=== PATIENT | male | born 1965 | race Caucasian/White ===

== ENCOUNTER 2017-04-07 09:51 | Day surgery (SDC) | payer BC ==
[2017-04-07] MEDS ORDERED: LIDOCAINE 2% MDV (20MG/ML) 20ML VIAL IV ONE (15:51)
[2017-04-07] MEDS ORDERED: MIDAZOLAM HCL 2MG/2ML VIAL IV ONE (15:51)
[2017-04-07] MEDS ORDERED: PROPOFOL 10 MG/ML VIAL IV ONE (15:51)
--- NOTE | 2017-04-10 12:30 | Operative Note ---
DATE OF SURGERY: 04/07/2017 SURGEON: Marlena Proctor MD OPERATION: COLONOSCOPY. INDICATIONS: This is a 51-year-old male with average risk for colorectal cancer who presented for screening colonoscopy. POSTOPERATIVE DIAGNOSES: 1. Left-sided colonic diverticulosis. 2. A 3 mm descending colon polyp that was removed by cold biopsy forceps. 3. Two 8-12 mm sessile polyps in the sigmoid colon that were removed by hot snare. 4. Multiple rectal polyps that were removed by cold snare and biopsy forceps. ANESTHESIA: Sedation is per Anesthesia. Pulse oximetry was monitored throughout the procedure to maintain O2 saturation of 90% or greater. Supplemental oxygen was administered via nasal cannula. Cardiac and vital signs were monitored throughout the duration of the procedure, and they were stable. The procedure of colonoscopy and risks and alternatives of the procedure, including the risk of bleeding and perforation, among others, were explained to the patient who voiced understanding and agreed to have the procedure done. Physical examination was performed, and the patient was found stable for sedation. PROCEDURE: The patient was placed in the left lateral position. Sedation was initiated. A digital rectal exam was performed and showed some mild external hemorrhoids with no palpable rectal masses. An Olympus PCF-AL180 colonoscope was then inserted into the rectum under direct visualization. It was advanced to the cecum without difficulty. The ileocecal valve and appendiceal orifice were identified and photographed. The colonic mucosa was carefully examined upon introduction of the colonoscope. In the sigmoid and descending colon were scattered diverticula. In the descending colon was a 3 mm sessile polyp that was noted and was removed by cold biopsy forceps. There were no other lesions noted. The colonoscope was then withdrawn while carefully examining the colonic mucosal surfaces. No other lesions were noted. In the sigmoid colon were two 8-12 mm sessile polyps that were noted and they were removed by snare cautery. The colonoscope was then withdrawn into the rectum, and there were four 2-3 mm sessile polyps that were noted and they were removed by cold biopsy forceps. There were 2 adjacent 6 mm sessile polyps that were removed by cold snare. Retroflexion revealed grade 1 internal hemorrhoids. There were no other lesions noted. The colonoscope was then withdrawn and the procedure was terminated. The patient tolerated the procedure well without any immediate complications. He remained with stable vital signs and was transferred to the recovery room. RECOMMENDATIONS: 1. The patient should be on a low-residue diet for 2 weeks and thereafter to be on a high-fiber diet. 2. Avoid any aspirin or aspirin-like medications for 2 weeks. 3. The patient is to have a repeat colonoscopy for surveillance in 3 years. Thank you for allowing me to participate in the care of your patient. CC: CONNIE WISE MD, FACP [facility]
== END 2017-04-07 12:08 | disposition home or self-care (01) ==
LOC: HOP 09:51
PROVIDERS: ATTEND Internal Medicine Gastroenterology
DX: Z12.11 Encounter for screening for malignant neoplasm of colon (principal); K57.30 Diverticulosis of large intestine without perforation or abscess without bleeding; D12.4 Benign neoplasm of descending colon; D12.5 Benign neoplasm of sigmoid colon; D12.8 Benign neoplasm of rectum; K64.0 First degree hemorrhoids; K64.4 Residual hemorrhoidal skin tags

== ENCOUNTER 2018-10-02 18:58 | Emergency (ER) | payer BC, OTHER ==
--- NOTE | 2018-10-02 19:05 | Emergency Department Record ---
History of Present Illness - General Chief complaint: Extremity Problem Stated complaint: RT BICEP PAIN Time Seen by Provider: 10/02/18 18:59 Source: Patient, Old records reviewed Mode of Arrival: Ambulatory Limitations: No limitations - History of Present Illness Initial comments: 53 yo male presents to ED for evaluation of pain and "bulging" of the right biceps tendon, reports that his symptoms began approximately 8 days ago. 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 Patient reports previous biceps tendon rupture s/p repair with Dr. Velazquez, denies significant pain or weakness symptoms. MD Complaint: Extremity swelling Onset/Timin -: Days(s) Location: Right, Arm History of Same: Yes -: Yes Myalgia Quality: Aching Consistency: Intermittent Improves with: Rest Worsens with: Other (Use of the right upper ar,m) Associated Symptoms: Denies other symptoms - Related Data Allergies Allergy/AdvReac Type Severity Reaction Status Date / Time No Known Drug Allergies Allergy Unverified 09/04/18 09:42 Review of Systems Constitutional: Denies: Chills, Fever, Malaise, Night sweats Eyes: Denies: Eye discharge, Eye pain ENT: Denies: Congestion, Ear pain, Epistaxis Respiratory: Denies: Cough, Dyspnea Cardiovascular: Denies: Chest pain, Dyspnea on exertion Endocrine: Denies: Fatigue, Heat or cold intolerance Gastrointestinal: Denies: Abdominal pain, Nausea, Vomiting Genitourinary: Denies: Incontinence, Retention Musculoskeletal: Reports: Myalgia. Denies: Arthralgia, Back pain Skin: Denies: Bruising, Change in color Neurological: Denies: Abnormal gait, Confusion, Headache, Numbness, Paresthesias , Tingling, Tremors Psychiatric: Denies: Anxiety Hematological/Lymphatic: Denies: Anemia, Blood Clots Past Medical History - SOCIAL HISTORY Smoking Status: Current every day smoker - RESPIRATORY Hx Respiratory Disorders: No - CARDIOVASCULAR Hx Cardio Disorders: No - NEURO Hx Neuro Disorders: No - GI Hx GI Disorders: Yes Hx Diverticulitis: Yes Comment:: n/a - Hx Genitourinary Disorders: Yes Comment:: Pt born with one kidney - ENDOCRINE Hx Endocrine Disorders: No - MUSCULOSKELETAL Hx Musculoskeletal Disorders: Yes Hx Arthritis: Yes (shoulders) - PSYCH Hx Psych Problems: No - HEMATOLOGY/ONCOLOGY Hx Hematology/Oncology Disorders: No Family Medical History Hx Heart Disease: Father, Mother Physical Exam - General General Appearance: Alert, Oriented x3, Cooperative, Mild distress Limitations: No limitations - Head Head exam: Atraumatic, Normocephalic, Normal inspection Head exam detail: negative: Abrasion, Contusion, Jarquin's sign, General tenderness, Hematoma, Laceration - Eye Eye exam: Normal appearance. negative: Conjunctival injection, Periorbital swelling, Periorbital tenderness, Scleral icterus - ENT Ear exam: negative: Auricular hematoma, Auricular trauma Nasal Exam: negative: Active bleeding, Discharge, Dried blood, Foreign body Mouth exam: negative: Drooling, Laceration, Muffled voice, Tongue elevation - Neck Neck exam: Normal inspection. negative: Meningismus, Tenderness - Respiratory Respiratory exam: Normal lung sounds bilaterally. negative: Respiratory distress, Rhonchi, Stridor, Wheezes - Cardiovascular Cardiovascular Exam: Regular rate, Normal rhythm, Normal heart sounds Peripheral Pulses: 3+: Radial (R) - GI/Abdominal GI/Abdominal exam: Soft. negative: Distended, Rebound, Rigid, Tenderness - Rectal Rectal exam: Deferred - exam: Deferred - Extremities Extremities exam: Tenderness, Other (Mild TTP over the proximal aspect of the biceps, distal bulging of the muscle is present c/w tendon rupture. Previous surgical repair is evident with examination of the sleft shoulder/upper arm. Compartments of the upper arm/forearm are soft on examination, strong distal radial pulse is present.). negative: Calf tenderness, Pedal edema - Back Back exam: Denies: CVA tenderness (R), CVA tenderness (L) - Neurological Neurological exam: Alert, Normal gait, Oriented X3 - Psychiatric Psychiatric exam: Normal affect, Normal mood - Skin Skin exam: Normal color. negative: Abrasion Type of lesion: negative: abrasion Course - Reevaluation(s) Reevaluation #1: 10/02/18 19:12 Examination appears c/w proximal biceps tendon rupture on examination Patinet declined sling, analgesia in ED. Will refer the patient to see Dr. Velazquez in the [facility] for further evaluation. Patient appears stable for discharge at this time. Disposition Disposition: Discharge Clinical Impression: Biceps tendon rupture Qualifiers: Encounter type: initial encounter Laterality: right Qualified Code(s): S46.211A - Strain of muscle, fascia and tendon of other parts of biceps, right arm, initial encounter Disposition: Home, Self-Care Condition: (2) Stable Instructions: Tendon Rupture (ED) Additional Instructions: Return to ED if your symptoms worsen or if you have any concerns. Follow-up with Dr. Velazquez in the [facility] in 3-5 days as directed. Referrals: MOE VELAZQUEZ [DOCTOR OF OSTEOPATH] - [facility] [Provider Group] Forms: Patient Portal Access Time of Disposition: 19:05 Quality - Quality Measures Quality Measures: N/A - Blood Pressure Screening Does Patient Have Any of the Following: No Systolic Measurement: ~ Screening for High Blood Pressure: < Normal BP, F/U Not Required > [[id number]]
== END 2018-10-02 19:37 | disposition home or self-care (01) ==
LOC: ER 18:58
DX: S46.211A Strain of muscle, fascia and tendon of other parts of biceps, right arm, initial encounter (principal); X50.3XXA Overexertion from repetitive movements, initial encounter; F17.210 Nicotine dependence, cigarettes, uncomplicated
CPT/HCPCS: 99282; 99283